=== PATIENT | female | born 1990 | race Caucasian/White ===

== ENCOUNTER 2016-09-05 15:28 | Emergency (ER) | payer OTHER ==
[~2016-09-05] VITALS: Ht 160 cm; Wt 73.0 kg
[~2016-09-05 15:28] MED LIST: BACTDS PO; HYDR-3010 PO; IBUP-1542 PO
[2016-09-05 15:33] VITALS: Ht 160 cm; Wt 73.0 kg
--- NOTE | 2016-09-05 16:42 | ERD ---
ER Documentation Chief Complaint Date/Time DATE: 09/05/16 TIME: 16:34 Chief Complaint PELVIC PAIN X 1 YEAR WORSE X 4 DAYS AGO HPI Otherwise healthy 25-year-old female presents to the emergency department complaining of a one-year history of intermittent right sided pelvic cramping. Patient states she has been seen and evaluated for this symptom previously but was not diagnosed with anything. Patient received an ultrasound in November 2015 which is unremarkable. Patient was instructed to follow-up with REGIONAL OPERATIONS MANAGER specialist and states that she has an appointment scheduled for the of this month. However patient presents to the ER for ongoing discomfort. Patient currently rates her pain as a cramp like 6 out of 10 constant right- sided lower pelvic pain. Patient denies any dysuria, vaginal discharge, abnormal bleeding, rash, fever, flank pain. Patient denies any new sexual partners within the last year. Patient states she has not attempted to treat her pain at home with any medication. ROS All systems reviewed and are negative except as per history of present illness. Medications Home Meds Active Scripts Docusate Sodium* (Colace*) 100 Mg Capsule, 200 MG PO DAILY, #30 CAP Prov:ZELALEM PARADA PA-C 09/05/16 Ibuprofen* (Motrin*) 600 Mg Tab, 600 MG PO Q6, #30 TAB Prov:ZELALEM PARADA PA-C 09/05/16 Ondansetron (Ondansetron Odt) 4 Mg Tab.rapdis, 4 MG PO Q6H Y for NAUSEA AND/OR VOMITING, #10 TAB Prov:ZELALEM PARADA PA-C 09/05/16 Hydroxyzine Hcl* (Hydroxyzine Hcl*) 10 Mg Tablet, 10 MG PO Q6H Y for ANXIETY, # 30 TAB Prov:MARGY FLEMING PA-C 11/27/15 Sulfamethoxazole-Trimethoprim* (Bactrim* DS) 800-160 Mg Tab, 1 TAB PO BID for 7 Days, TAB Prov:MORIS LIN NP 10/29/15 Ibuprofen* (Motrin*) 600 Mg Tab, 600 MG PO Q6H Y for PAIN AND OR ELEVATED TEMP, #30 TAB Prov:MORIS LIN NP 10/29/15 Allergies Allergies: Coded Allergies: No Known Allergy (Unverified , 01/03/13) PMhx/Soc History of Surgery: Yes (CYST REMOVAL) Anesthesia Reaction: No Hx Neurological Disorder: No Hx Respiratory Disorders: No Hx Cardiac Disorders: No Hx Psychiatric Problems: No Hx Miscellaneous Medical Probl: No Hx Alcohol Use: No Hx Substance Use: No Hx Tobacco Use: No Smoking Status: Never smoker Physical Exam Vitals Vital Signs Date Time Temp Pulse Resp B/P Pulse Ox O2 Delivery O2 Flow Rate FiO2 09/05/16 19:45 56 16 109/66 98 Room Air 09/05/16 15:33 98.7 92 18 134/78 99 Physical Exam Const: Well-developed, well-nourished, nontoxic, no acute distress Head: Atraumatic Eyes: Normal Conjunctiva ENT: Normal External Ears, Nose and Mouth. Neck: Full range of motion..~ No meningismus. Resp: Clear to auscultation bilaterally Cardio: Regular rate and rhythm, no murmurs Abd: Mild tenderness to palpation of right sided pelvic area. No masses or evidence of hernia identified. Soft, non tender, non distended. Normal bowel sounds Skin: No petechiae or rashes Back: No midline or flank tenderness Ext: No cyanosis, or edema Neur: Awake and alert Psych: Normal Mood and Affect Result Diagram: 09/05/16 1730 09/05/16 1730 Results 24 hrs Laboratory Tests Test 09/05/16 17:15 09/05/16 17:30 Urine Color LT. YELLOW Urine Clarity CLEAR Urine pH 6.0 Urine Specific [place] 1.025 Urine Ketones NEGATIVE Urine Nitrite NEGATIVE Urine Bilirubin NEGATIVE Urine Urobilinogen 0.2 E.U./dL Urine Leukocyte Esterase NEGATIVE Urine Hemoglobin NEGATIVE Urine Glucose NEGATIVE% Urine Total Protein NEGATIVE White Blood Count 9.610^3/ul Red Blood Count 4.3910^6/ul Hemoglobin 13.4g/dl Hematocrit 39.5% Mean Corpuscular Volume 90.0fl Mean Corpuscular Hemoglobin 30.5pg Mean Corpuscular Hemoglobin Concent 33.9g/dl Red Cell Distribution Width 12.5% Platelet Count 24744^3/UL Mean Platelet Volume 9.7fl Neutrophils % 56.3% Lymphocytes % 34.0% Monocytes % 5.2% Eosinophils % 3.7% Basophils % 0.5% Nucleated Red Blood Cells % 0.0/100WBC Neutrophils # 5.410^3/ul Lymphocytes # 3.310^3/ul Monocytes # 0.510^3/ul Eosinophils # 0.410^3/ul Basophils # 0.110^3/ul Nucleated Red Blood Cells # 0.010^3/ul Sodium Level 139mmol/L Potassium Level 3.6mmol/L Chloride Level 100mmol/L Carbon Dioxide Level 28mmol/L Anion Gap 15 Blood Urea Nitrogen 14mg/dl Creatinine 0.62mg/dl Glucose Level 82mg/dl Calcium Level 9.2mg/dl Total Bilirubin 0.4mg/dl Direct Bilirubin 0.00mg/dl Indirect Bilirubin 0.4mg/dl Aspartate Amino Transf (AST/SGOT) 25IU/L Alanine Aminotransferase (ALT/SGPT) 36IU/L Alkaline Phosphatase 57IU/L Total Protein 8.0g/dl Albumin 4.7g/dl Globulin 3.30g/dl Albumin/Globulin Ratio 1.42 Current Medications Medications (Trade) Dose Ordered Sig/Romario Route PRN Reason Start Time Stop Time Status Last Admin Dose Admin Acetaminophen/ Hydrocodone Bitart ([place] (5/325)) 1 tab ONCE ONCE PO 09/05/16 18:00 09/05/16 18:01 DC 09/05/16 19:15 Ondansetron HCl (Zofran Odt) 4 mg ONCE STAT ODT 09/05/16 17:32 09/05/16 17:34 DC 09/05/16 19:14 Procedures/MDM PROCEDURE: CT abdomen and pelvis without contrast. CLINICAL INDICATION: Abdominal pain. TECHNIQUE: CT scan of the abdomen and pelvis without contrast was performed on a multi-slice CT scanner . Sagittal and coronal reformatted images were obtained from the axial source images. One or more of the following dose reduction techniques were used: - Automated exposure control. - Adjustment of the mA and/or kV according to patient size. - Use of iterative reconstruction technique. DLP 602.3 mGycm. CTDIvol 10.7 mGy COMPARISON: None FINDINGS: The lung bases are clear. There is limited evaluation of the solid viscera from the lack of IV contrast. The kidneys are symmetric bilaterally with no evidence of renal or ureteral calculi. There is no hydronephrosis or perinephric stranding. There is normal density of the liver with no gross focal lesion or biliary ductal dilatation. The gallbladder has multiple layering small gallstones without surrounding visible inflammatory changes on CT. The spleen is unremarkable without mass. The adrenal glands are within normal limits without mass. The pancreas is unremarkable without focal lesion or surrounding inflammatory changes. There is no bowel obstruction or focal bowel inflammation. The appendix is unremarkable. There is a diffusely fecal filled colon. There is no free air or free fluid. There are no enlarged lymph nodes. The aorta is unremarkable and there is no acute osseous abnormality. The uterus and adnexal structures are grossly unremarkable. IMPRESSION: No evidence of renal or ureteral calculi or hydronephrosis. No evidence of bowel obstruction or inflammation. There is no appendicitis. There is a fecal filled colon suggestive for constipation. Cholelithiasis without CT evidence for cholecystitis. RPTAT: AA .Luis Conklin MD, MD Date Time Electronically viewed and signed by .Luis Conklin MD, MD on 09/05/2016 18:30 .J/ CC: ZELALEM PARADA PA-C PROCEDURE: US Pelvis. CLINICAL INDICATION: pelvic pain TECHNIQUE: Multiple sonographic images of the pelvis were obtained utilizing a transabdominal and endovaginal technique. The images were reviewed on a PACS workstation. COMPARISON: None. FINDINGS: The uterus is normal in size with a normal appearance of the myometrium. The uterus measures 7.9 x 5.0 x 5.6 cm. The endometrial stripe is homogeneous in appearance and has the thickness of 8 mm. The ovaries are normal in size and echogenicity. Normal Doppler flow is identified in both ovaries. The right ovary measures 2.9 x 1.8 x 2.2 cm. The left ovary measures 2.9 x 1.4 x 1.6 cm. There are normal sub centimeter follicles in the ovaries. No free fluid is present within the pelvis. RPTAT: AA IMPRESSION: Unremarkable pelvic ultrasound. .Kyree Hansen MD, MD Date Time Electronically viewed and signed by .Kyree Hansen MD, MD on 09/05/2016 17: 27 .S/ CC: TALZELALEM Faby AMNADA 25-year-old well-appearing female with a history of right sided intermittent pelvic cramping 1 year presents for ongoing right-sided pelvic discomfort. Patient was seen and evaluated by [facility] emergency department in November 2015. At that time an ultrasound was performed and unremarkable for any acute abnormalities. Vital signs today were reviewed. Patient is afebrile. Patient is not hypoxic. Patient denies any fever, vomiting, diarrhea, or other abdominal pain. Patient denies any vaginal discharge, abnormal bleeding, or rash. CBC showed no evidence of systemic infection or severe anemia. CMP showed no evidence of electrolyte abnormalities, severe acidosis, alkalosis , renal failure, or liver disease. UA showed no evidence of acute infection or hematuria. Urine test was negative. Ultrasound unremarkable. CT scan revealed evidence of fecal filled colon suggestive of constipation as well as cholelithiasis without evidence of cholecystitis or acute appendicitis. Patient's clinical presentation consistent with chronic right sided pelvic cramping of unknown etiology. At this time low suspicion for ectopic , ovarian torsion, tubo-ovarian abscess, acute appendicitis, small bowel obstruction, renal calculi, cholecystitis or pancreatitis. Patient to follow-up with [facility]PERATIONS MANAGER specialist as previously scheduled for 25 September. Patient given copies of all lab and imaging studies. Until then patient to begin Colace, Motrin, and Tylenol for pain. Patient received a dose of pain medication while in the emergency department and reports improvement of symptoms. Based on patient's history of present illness and physical examination the decision was made to discharge. The patient was re-evaluated after ED treatment and stabilizing measures, and symptoms have improved. There is no evidence of life threatening injuries or illnesses at this time. On re-examination, patient resting in no distress, stable vital signs, reports feeling better and safe for discharge with outpatient follow up with PMD in 1-2 days. Patient given return precautions. Departure Diagnosis: Primary Impression: Chronic pelvic pain in female Additional Impressions: Pelvic cramping Constipation Constipation type: unspecified constipation type Qualified Code: K59.00 - Constipation, unspecified constipation type ZELALEM PARADA PA-C September 05, 2016 16:42
--- NOTE | 2016-09-05 17:28 | RADRPT ---
PROCEDURE: US Pelvis. CLINICAL INDICATION: pelvic pain TECHNIQUE: Multiple sonographic images of the pelvis were obtained utilizing a transabdominal and endovaginal technique. The images were reviewed on a PACS workstation. COMPARISON: None. FINDINGS: The uterus is normal in size with a normal appearance of the myometrium. The uterus measures 7.9 x 5.0 x 5.6 cm. The endometrial stripe is homogeneous in appearance and has the thickness of 8 mm. The ovaries are normal in size and echogenicity. Normal Doppler flow is identified in both ovaries. The right ovary measures 2.9 x 1.8 x 2.2 cm. The left ovary measures 2.9 x 1.4 x 1.6 cm. There are normal sub centimeter follicles in the ovaries. No free fluid is present within the pelvis. RPTAT: AA IMPRESSION: Unremarkable pelvic ultrasound. .Kyree Hansen MD, Date Time Electronically viewed and signed by .Kyree Hansen MD, MD on 09/05/2016 17:27 .S/
[2016-09-05 17:29] LABS: ADD UMIC NO; URINE BILIRUBIN (Dip) NEGATIVE (NEGATIVE); URINE BLOOD (Dip) NEGATIVE (NEGATIVE); URINE COLOR LT. YELLOW (YELLOW); URINE GLUCOSE (Dip) NEGATIVE (NEGATIVE); URINE KETONES (Dip) NEGATIVE (NEGATIVE); URINE LEUKOCYTE ESTERASE (Dip) NEGATIVE (NEGATIVE); URINE NITRITE (Dip) NEGATIVE (NEGATIVE); URINE TOTAL PROTEIN (Dip) NEGATIVE (NEGATIVE); URINE UROBILINOGEN (Dip) 0.2 E.U./dL (0.1-1.0)
[2016-09-05] MEDS ORDERED: ONDANSETRON (ODT) 4 MG TAB ODT STA (17:32)
[2016-09-05 17:36] LABS: ADD SCAN DIFF NO
[2016-09-05 17:38] LABS: BASOPHIL # 0.1 10^3/ul (0.0-0.1); BASOPHILS % 0.5 % (0.0-2.0); EOSINOPHILS # 0.4 10^3/ul (0.0-0.5); EOSINOPHILS % 3.7 % (0.0-7.0); HEMATOCRIT 39.5 % (37.0-47.0); HEMOGLOBIN 13.4 g/dl (12.0-16.0); LYMPHOCYTES # 3.3 10^3/ul (0.8-2.9); MEAN CORPUSCULAR HEMOGLOBIN 30.5 pg (29.0-33.0); MEAN CORPUSCULAR HGB CONC 33.9 g/dl (32.0-37.0); MEAN PLATELET VOLUME 9.7 fl (7.4-10.4); MONOCYTE # 0.5 10^3/ul (0.3-0.9); MONOCYTES % 5.2 % (0.0-11.0); NEUTROPHIL # 5.4 10^3/ul (1.6-7.5); NEUTROPHILS % 56.3 % (39.0-77.0); PLATELET COUNT 308 10^3/UL (140-415); RED BLOOD COUNT 4.39 10^6/ul (4.20-5.40); RED CELL DISTRIBUTION WIDTH 12.5 % (11.5-14.5); WHITE BLOOD COUNT 9.6 10^3/ul (4.8-10.8)
[2016-09-05 17:55] LABS: ALBUMIN 4.7 g/dl (3.3-4.9)
[2016-09-05 17:56] LABS: POTASSIUM 3.6 mmol/L (3.5-5.1)
[2016-09-05 17:58] LABS: ALBUMIN/GLOBULIN RATIO 1.42; BILIRUBIN,INDIRECT 0.4 mg/dl (0-1.1); BILIRUBIN,TOTAL 0.4 mg/dl (0.2-1.3); CREATININE 0.62 mg/dl (0.44-1.00)
[2016-09-05 17:59] LABS: CALCIUM 9.2 mg/dl (8.4-10.2)
[2016-09-05] MEDS ORDERED: HYDROCODONE/APAP (5/325) TAB PO ONE (18:00)
--- NOTE | 2016-09-05 18:31 | RADRPT ---
PROCEDURE: CT abdomen and pelvis without contrast. CLINICAL INDICATION: Abdominal pain. TECHNIQUE: CT scan of the abdomen and pelvis without contrast was performed on a multi-slice CT [facility] . Sagittal and coronal reformatted images were obtained from the axial source images. One or more of the following dose reduction techniques were used: - Automated exposure control. - Adjustment of the mA and/or kV according to patient size. - Use of iterative reconstruction technique. DLP 602.3 mGycm. CTDIvol 10.7 mGy COMPARISON: None FINDINGS: The lung bases are clear. There is limited evaluation of the solid viscera from the lack of IV con trast. The kidneys are symmetric bilaterally with no evidence of renal or ureteral calculi. There is no hy dronephrosis or perinephric stranding. There is normal density of the liver with no gross focal lesion or biliary ductal dilatation. The gallbladder has multiple layering small gallstones without surrounding visible inflammatory changes on CT. The spleen is unremarkable without mass. The adrenal glands are within normal limits without mass. The pancreas is unremarkable without focal lesion or surrounding inflammatory changes. There is no bowel obstruction or focal bowel inflammation. The appendix is unremarkable. There is a diffusely fecal filled colon. There is no free air or free fluid. There are no enlarged lymph node s. The aorta is unremarkable and there is no acute osseous abnormality. The uterus and adnexal structures are grossly unremarkable. IMPRESSION: No evidence of renal or ureteral calculi or hydronephrosis. No evidence of bowel obstruction or inflammation. There is no appendicitis. There is a fecal fille d colon suggestive for constipation. Cholelithiasis without CT evidence for cholecystitis. RPTAT: AA .Luis Conklin MD, MD Date Time Electronically viewed and signed by .Luis Conklin MD, MD on 09/05/2016 18:30 .Jeannine/
[2016-09-05] MEDS ORDERED: DOCU-144 PO (18:48)
[2016-09-05] MEDS ORDERED: ONDA4TAB14 PO (18:48)
[2016-09-05] MEDS ORDERED: IBUP-1542 PO (18:48)
[2016-09-05 19:45] VITALS: BP 109/66; PULSE 56; RESP 16
== END 2016-09-05 19:46 | disposition home or self-care (01) ==
LOC: FTE 15:28
DX: R10.2 Pelvic and perineal pain (principal); K59.00 Constipation, unspecified
CPT/HCPCS: 36415; 74176; 76830; 76856; 80053; 81003; 85025; Z7502; Z7610

== ENCOUNTER 2017-01-23 12:06 | Emergency (ER) | payer OTHER ==
[~2017-01-23] VITALS: Ht 160 cm; Wt 73.0 kg
[~2017-01-23 12:06] MED LIST changes: +DOCU-144 PO; +ONDA4TAB14 PO
[2017-01-23 12:08] VITALS: Ht 160 cm; Wt 73.0 kg
[2017-01-23 13:35] LABS: URINE BLOOD (Dip) POC Trace-intact (NEGATIVE)
[2017-01-23 14:11] LABS: BASOPHIL # 0.1 10^3/ul (0.0-0.1); BASOPHILS % 0.6 % (0.0-2.0); EOSINOPHILS # 0.2 10^3/ul (0.0-0.5); EOSINOPHILS % 1.7 % (0.0-7.0); HEMOGLOBIN 12.9 g/dl (12.0-16.0); LYMPHOCYTES # 3.2 10^3/ul (0.8-2.9); LYMPHOCYTES % 31.1 % (15.0-51.0); MEAN CORPUSCULAR HEMOGLOBIN 30.9 pg (29.0-33.0); MEAN CORPUSCULAR HGB CONC 33.9 g/dl (32.0-37.0); MEAN CORPUSCULAR VOLUME 90.9 fl (82.0-101.0); MEAN PLATELET VOLUME 9.7 fl (7.4-10.4); MONOCYTE # 0.7 10^3/ul (0.3-0.9); MONOCYTES % 6.7 % (0.0-11.0); NEUTROPHIL # 6.1 10^3/ul (1.6-7.5); NEUTROPHILS % 59.6 % (39.0-77.0); PLATELET COUNT 299 10^3/UL (140-415); RED BLOOD COUNT 4.18 10^6/ul (4.20-5.40); RED CELL DISTRIBUTION WIDTH 12.4 % (11.5-14.5); WHITE BLOOD COUNT 10.3 10^3/ul (4.8-10.8)
--- NOTE | 2017-01-23 14:24 | RADRPT ---
PROCEDURE: OBSTETRICAL ULTRASOUND WITH ENDOVAGINAL IMAGES CLINICAL INDICATION: Vaginal bleeding, , pain TECHNIQUE: Multiple sonographic images of the pelvis were obtained utilizing a transabdominal and endovaginal technique. The images were reviewed on a PACS workstation. COMPARISON: None. LMP: 12/21/2016 Gestational age by LMP: 4 weeks, 5 days FINDINGS: The uterus is retroverted and measures 7.1 x 5.4 x 5.8 cm. The endometrial echo complex measures 12 mm in thickness. There is no evidence of an intrauterine . The right ovary measures 3.0 x 2.0 x 2.1 cm. The left ovary measures 2.3 x 1.4 x 1.7 cm. There is no rmal vascular flow in both ovaries. No significant ovarian lesions are seen. There is mild pelvic free fluid. IMPRESSION: Thickening of the endometrium to 12 mm without evidence of an intrauterine . Findings ma y be due to an early intrauterine although an ectopic and early demise can not be entirely excluded. Short-term follow-up ultrasound and serial Beta HCG measurements are leonides mmended for further evaluation. RPTAT: EE Physician Marlon Date Time Electronically viewed and signed by Physician Marlon on 01/23/2017 14:23 /
--- NOTE | 2017-01-23 15:30 | ERD ---
ER Documentation Chief Complaint Date/Time DATE: 01/23/17 TIME: 15:26 Chief Complaint right pelvic pain x 1 week HPI 26-year-old female complaining of suprapubic pelvic pressure 1 week. A1. Last normal menstrual period December 21. No hematuria. No vaginal bleeding. Has not taken medication for symptoms. Denies dysuria. Denies back pain. ROS All systems reviewed and are negative except as per history of present illness. Medications Home Meds Active Scripts Docusate Sodium* (Colace*) 100 Mg Capsule, 200 MG PO DAILY, #30 CAP Prov:ZELALEM PARADA PA-C 09/05/16 Ibuprofen* (Motrin*) 600 Mg Tab, 600 MG PO Q6, #30 TAB Prov:ZELALEM PARADA PA-C 09/05/16 Ondansetron (Ondansetron Odt) 4 Mg Tab.rapdis, 4 MG PO Q6H Y for NAUSEA AND/OR VOMITING, #10 TAB Prov:ZELALEM PARADA PA-C 09/05/16 Hydroxyzine Hcl* (Hydroxyzine Hcl*) 10 Mg Tablet, 10 MG PO Q6H Y for ANXIETY, # 30 TAB Prov:MARGY FLEMING PA-C 11/27/15 Sulfamethoxazole-Trimethoprim* (Bactrim* DS) 800-160 Mg Tab, 1 TAB PO BID for 7 Days, TAB Prov:MORIS LIN SPECIAL DEPUTY SHERIFF 10/29/15 Ibuprofen* (Motrin*) 600 Mg Tab, 600 MG PO Q6H Y for PAIN AND OR ELEVATED TEMP, #30 TAB Prov:MORIS LIN. DIMITRI 10/29/15 Allergies Allergies: Coded Allergies: No Known Allergy (Unverified , 01/03/13) PMhx/Soc History of Surgery: Yes (CYST REMOVAL) Anesthesia Reaction: No Hx Neurological Disorder: No Hx Respiratory Disorders: No Hx Cardiac Disorders: No Hx Psychiatric Problems: No Hx Miscellaneous Medical Probl: No Hx Alcohol Use: No Hx Substance Use: No Hx Tobacco Use: No Physical Exam Vitals Vital Signs Date Time Temp Pulse Resp B/P Pulse Ox O2 Delivery O2 Flow Rate FiO2 01/23/17 12:08 98.8 87 18 132/72 98 Physical Exam GENERAL: The patient is well-appearing, well-nourished, in no acute distress CHEST: Clear to auscultation bilaterally. There are no rales, wheezes or rhonchi. HEART: Regular rate and rhythm. No murmurs, clicks, rubs or gallops. No S3 or S4. ABDOMEN: Active bowel sounds. Mild tenderness to palpation over suprapubic region. No lateralized right or left lower quadrant tenderness. No rebound tenderness. BACK: No midline or flank tenderness. Result Diagram: 01/23/17 1355 Results 24 hrs Laboratory Tests Test 01/23/17 13:42 01/23/17 13:55 Bedside Urine pH (LAB) 6.5 Bedside Urine Protein (LAB) Negative Bedside Urine Glucose (UA) Negative Bedside Urine Ketones (LAB) Negative Bedside Urine Blood Trace-intact Bedside Urine Nitrite (LAB) Negative Bedside Urine Leukocyte Esterase (L Negative White Blood Count 10.310^3/ul Red Blood Count 4.1810^6/ul Hemoglobin 12.9g/dl Hematocrit 38.0% Mean Corpuscular Volume 90.9fl Mean Corpuscular Hemoglobin 30.9pg Mean Corpuscular Hemoglobin Concent 33.9g/dl Red Cell Distribution Width 12.4% Platelet Count 54259^3/UL Mean Platelet Volume 9.7fl Neutrophils % 59.6% Lymphocytes % 31.1% Monocytes % 6.7% Eosinophils % 1.7% Basophils % 0.6% Nucleated Red Blood Cells % 0.0/100WBC Neutrophils # 6.110^3/ul Lymphocytes # 3.210^3/ul Monocytes # 0.710^3/ul Eosinophils # 0.210^3/ul Basophils # 0.110^3/ul Nucleated Red Blood Cells # 0.010^3/ul Beta HCG, Quantitative 270.3mIU/ml Procedures/MDM ER course: Urine was positive. Workup initiated to rule out possible ectopic . DIAGNOSTIC IMAGING REPORT Patient: MIKE MCLAUGHLIN : 1990 Age: 26 Sex: F MR #: [id number] DOS: 01/23/17 1339 Ordering MD: CYN FLEMING PA-C Location: [facility] Room/Bed: PROCEDURE: OBSTETRICAL ULTRASOUND WITH ENDOVAGINAL IMAGES CLINICAL INDICATION: Vaginal bleeding, , pain TECHNIQUE: Multiple sonographic images of the pelvis were obtained utilizing a transabdominal and endovaginal technique. The images were reviewed on a PACS workstation. COMPARISON: None. LMP: 12/21/2016 Gestational age by LMP: 4 weeks, 5 days FINDINGS: The uterus is retroverted and measures 7.1 x 5.4 x 5.8 cm. The endometrial echo complex measures 12 mm in thickness. There is no evidence of an intrauterine . The right ovary measures 3.0 x 2.0 x 2.1 cm. The left ovary measures 2.3 x 1.4 x 1.7 cm. There is normal vascular flow in both ovaries. No significant ovarian lesions are seen. There is mild pelvic free fluid. IMPRESSION: Thickening of the endometrium to 12 mm without evidence of an intrauterine . Findings may be due to an early intrauterine although an ectopic and early demise cannot be entirely excluded. Short- term follow-up ultrasound and serial Beta HCG measurements are recommended for further evaluation. MDM: 26-year-old female complaining of pelvic pressure 1 week. I cannot rule out ectopic at this time is patient is with no IUP identified on ultrasound. Patient beta hCG is 240 well below the discriminatory point. Patient is told to return in 2 days for reevaluation of blood work and imaging at that time. Patient is told if she begins having abdominal pressure and pain to return sooner. Patient does not require RhoGam injection. She is not having vaginal bleeding. No UTI seen on urine dip. Patient was discharged with strict ER precautions and will return in 2 days. I have low suspicion for acute abdominal emergency. Exam is within normal limits. Departure Diagnosis: Primary Impression: Acute pain in female pelvis Condition: Stable Patient Instructions: , New Dx Referrals: [employer]EL[place] [id number] [facility] [address] [place], [place] [phone] OFFICE FAX VALENCIA LGOVER [address] [place] [place] [phone] [place] [place] [address] [place] [place] [id number] [facility] [id number] [facility] [address] [place] [address] [address] [facility], [facility] [address] [facility] [place] [phone] [facility] [address] [place] [address] [address] [facility], [facility] [id number] - [address] RICE, [place] [address], [place] [address] DR WICK, [place] [address] [facility]. [address], [place] [address] DR BONE, [facility] [address] [place], [place] [phone] Additional Instructions: Return in 2 days for reevaluation MARGY FLEMING PA-C Jan 23, 2017 15:30
[2017-01-26] MEDS ORDERED: PREN1COM15 PO (16:51)
== END 2017-01-23 15:53 | disposition home or self-care (01) ==
LOC: FTE 12:06
DX: O26.891 Other specified pregnancy related conditions, first trimester (principal); Z3A.01 Less than 8 weeks gestation of pregnancy
CPT/HCPCS: 76801; 76817; 81003; 84702; 85025; 86900; 86901; Z7502

== ENCOUNTER 2017-01-26 14:58 | Emergency (ER) | END 2017-01-26 17:02 | disposition home or self-care (01) | DX: O26.891 Other specified pregnancy related conditions, first trimester (principal); R10.2 Pelvic and perineal pain; Z3A.01 Less than 8 weeks gestation of pregnancy ==

== ENCOUNTER 2017-02-22 18:52 | Emergency (ER) | payer OTHER ==
[~2017-02-22] VITALS: Ht 160 cm; Wt 72.5 kg
[~2017-02-22 18:52] MED LIST changes: +PREN1COM15 PO
[2017-02-22 18:56] VITALS: Ht 160 cm; Wt 72.5 kg
--- NOTE | 2017-02-22 20:15 | ERD ---
ER Documentation Chief Complaint Chief Complaint pelvic pain x 1 month HPI 26-year-old female presents here to emergency department for complaints of pelvic pain, patient complains of pain, pressure type pain, more on the right side, not better or worse with anything. Patient is 8 weeks , 5 para 3 1. Patient had ultrasound done 1 month ago for the same problem, was told to have intrauterine at 4 weeks. Patient continues to have the pain on and off, pressure type pain at this time, intermittent. ROS All systems reviewed and are negative except as per history of present illness. Medications Home Meds Active Scripts Vit #105/Iron/FA/Dha (Prena1 True Combo Pack) 1 Each Combo..pkg, 1 EACH PO DAILY, #30 Prov:MORIS LIN DELIVERY LEAD 01/26/17 Docusate Sodium* (Colace*) 100 Mg Capsule, 200 MG PO DAILY, #30 CAP Prov:ZELALEM PARADA PA-C 09/05/16 Ibuprofen* (Motrin*) 600 Mg Tab, 600 MG PO Q6, #30 TAB Prov:ZELALEM PARADA PA-C 09/05/16 Ondansetron (Ondansetron Odt) 4 Mg Tab.rapdis, 4 MG PO Q6H Y for NAUSEA AND/OR VOMITING, #10 TAB Prov:ZELALEM PARADA PA-C 09/05/16 Hydroxyzine Hcl* (Hydroxyzine Hcl*) 10 Mg Tablet, 10 MG PO Q6H Y for ANXIETY, # 30 TAB Prov:MARGY FLEMING PA-C 11/27/15 Sulfamethoxazole-Trimethoprim* (Bactrim* DS) 800-160 Mg Tab, 1 TAB PO BID for 7 Days, TAB Prov:MORIS LIN DELIVERY LEAD 10/29/15 Ibuprofen* (Motrin*) 600 Mg Tab, 600 MG PO Q6H Y for PAIN AND OR ELEVATED TEMP, #30 TAB Prov:MORIS LIN DELIVERY LEAD 10/29/15 Allergies Allergies: Coded Allergies: No Known Allergy (Unverified , 01/03/13) PMhx/Soc History of Surgery: Yes (CYST REMOVAL) Anesthesia Reaction: No Hx Neurological Disorder: No Hx Respiratory Disorders: No Hx Cardiac Disorders: No Hx Psychiatric Problems: No Hx Miscellaneous Medical Probl: No Hx Alcohol Use: No Hx Substance Use: No Hx Tobacco Use: No Smoking Status: Never smoker FmHx Family History: No coronary disease, No diabetes, No other Physical Exam Vitals Vital Signs Date Time Temp Pulse Resp B/P Pulse Ox O2 Delivery O2 Flow Rate FiO2 02/22/17 18:56 98.3 75 20 124/67 100 Physical Exam GENERAL: The patient is well developed and appropriate for usual state of health, in no apparent distress. CHEST: Clear to auscultation bilaterally. There are no rales, wheezes or rhonchi. HEART: Regular rate and rhythm. No murmurs, clicks, rubs or gallops. No S3 or S4. ABDOMEN: Soft, nontender and nondistended. Good bowel sounds. No rebound or guarding. No gross peritonitis. No gross organomegaly or masses. No Plata sign or McBurney point tenderness. BACK: No midline or flank tenderness. EXTREMITIES: Equal pulses bilaterally. There is no peripheral clubbing, cyanosis or edema. No focal swelling or erythema. Full range of motion. Grossly neurovascularly intact. NEURO: Alert and oriented. Cranial nerves 2-12 intact. Motor strength in all 4 extremities with 5/5 strength. Sensation grossly intact. Normal speech and gait. SKIN: There is no apparent rash or petechia. The skin is warm and dry. HEMATOLOGIC AND LYMPHATIC: There is no evidence of excessive bruising or lymphedema. No gross cervical, axillary, or inguinal lymphadenopathy. Result Diagram: 02/22/172014 Results 24 hrs Laboratory Tests Test 02/22/17 20:15 White Blood Count 10.810^3/ul Red Blood Count 4.0910^6/ul Hemoglobin 12.7g/dl Hematocrit 37.2% Mean Corpuscular Volume 91.0fl Mean Corpuscular Hemoglobin 31.1pg Mean Corpuscular Hemoglobin Concent 34.1g/dl Red Cell Distribution Width 12.5% Platelet Count 27047^3/UL Mean Platelet Volume 9.6fl Neutrophils % 56.6% Lymphocytes % 33.7% Monocytes % 6.6% Eosinophils % 2.1% Basophils % 0.6% Nucleated Red Blood Cells % 0.0/100WBC Neutrophils # 6.110^3/ul Lymphocytes # 3.610^3/ul Monocytes # 0.710^3/ul Eosinophils # 0.210^3/ul Basophils # 0.110^3/ul Nucleated Red Blood Cells # 0.010^3/ul Urine Color YELLOW Urine Clarity CLEAR Urine pH 6.0 Urine Specific [place] 1.023 Urine Ketones NEGATIVEmg/dL Urine Nitrite NEGATIVEmg/dL Urine Bilirubin NEGATIVEmg/dL Urine Urobilinogen NEGATIVEmg/dL Urine Leukocyte Esterase NEGATIVELeu/ul Urine Hemoglobin NEGATIVEmg/dL Urine Glucose NEGATIVEmg/dL Urine Total Protein NEGATIVEmg/dl Beta HCG, Quantitative 04784.0mIU/ml Procedures/MDM Medical Decision Making: Patient pelvic pain nonspecific at this time, patient is a viable . No urinary tract infection.. Patient does not show any evidence of hypovolemic shock. Patient hemoglobin and hematocrit is stable. There is low suspicion for ectopic . PATI results show _viable at 8 weeks. BetaHCG Quantitative is appropriate for .The patient is Rh+, does not need RhoGAM this time. There is no signs of symptoms of dehydration. There is low suspicion for sepsis. Patient appears well and is hemodynamically stable. No suspicion for appendicitis, other abdominal emergencies, nontender on abdominal palpation, no leukocytosis, no fever, no bandemia. Disposition: Home. Condition: Stable Prescription: Tylenol Instructions: Patient is advised to do bed rest, avoid heavy lifting, and avoid having sex until cleared by OB doctor. Patient is advised to follow up with OB doctor or here at the ER in 48 hours for reevaluation of symptoms, repeat beta HCG quantitative and ultrasound. Patient is advised that is symptoms are worst, severe bleeding, dizziness, severe abdominal pain, fever, worst signs and symptoms to return to the emergency department immediately. Disclaimer: Inadvertent spelling and grammatical errors are likely due to EHR/ dictation software use and do not reflect on the overall quality of patient care. Also, please note that the electronic time recorded on this note does not necessarily reflect the actual time of the patient encounter. Departure Diagnosis: Primary Impression: Pelvic pain Additional Impression: Intrauterine Condition: Stable Patient Instructions: Pelvic Pain, Unknown Cause Additional Instructions: Patient is advised to do bed rest, avoid heavy lifting, and avoid having sex until cleared by OB doctor. Patient is advised to follow up with OB doctor or here at the ER in 48 hours for reevaluation of symptoms, repeat beta HCG quantitative and ultrasound. Patient is advised that is symptoms are worst, severe bleeding, dizziness, severe abdominal pain, fever, worst signs and symptoms to return to the emergency department immediately. RICHARD REDDY NP Feb 22, 2017 20:15
[2017-02-22 20:27] LABS: BASOPHIL # 0.1 10^3/ul (0.0-0.1); BASOPHILS % 0.6 % (0.0-2.0); EOSINOPHILS # 0.2 10^3/ul (0.0-0.5); EOSINOPHILS % 2.1 % (0.0-7.0); HEMATOCRIT 37.2 % (37.0-47.0); HEMOGLOBIN 12.7 g/dl (12.0-16.0); LYMPHOCYTES # 3.6 10^3/ul (0.8-2.9); LYMPHOCYTES % 33.7 % (15.0-51.0); MEAN CORPUSCULAR HEMOGLOBIN 31.1 pg (29.0-33.0); MEAN CORPUSCULAR HGB CONC 34.1 g/dl (32.0-37.0); MEAN PLATELET VOLUME 9.6 fl (7.4-10.4); MONOCYTE # 0.7 10^3/ul (0.3-0.9); MONOCYTES % 6.6 % (0.0-11.0); NEUTROPHIL # 6.1 10^3/ul (1.6-7.5); NEUTROPHILS % 56.6 % (39.0-77.0); PLATELET COUNT 285 10^3/UL (140-415); RED BLOOD COUNT 4.09 10^6/ul (4.20-5.40); RED CELL DISTRIBUTION WIDTH 12.5 % (11.5-14.5); WHITE BLOOD COUNT 10.8 10^3/ul (4.8-10.8)
[2017-02-22 20:28] LABS: ADD UMIC NO; UR ASCORBIC ACID 40 mg/dL (NEGATIVE); UR BILIRUBIN (Dip) NEGATIVE (NEGATIVE); UR BLOOD (Dip) NEGATIVE (NEGATIVE); UR CLARITY CLEAR (CLEAR); UR COLOR YELLOW (YELLOW); UR GLUCOSE (Dip) NEGATIVE (NEGATIVE); UR KETONES (Dip) NEGATIVE (NEGATIVE); UR LEUKOCYTE ESTERASE (Dip) NEGATIVE Leu/ul (NEGATIVE); UR NITRITE (Dip) NEGATIVE (NEGATIVE); UR SPECIFIC GRAVITY (Dip) 1.023 (1.003-1.030); UR TOTAL PROTEIN (Dip) NEGATIVE (NEGATIVE); UR UROBILINOGEN (Dip) NEGATIVE (NEGATIVE)
--- NOTE | 2017-02-22 20:58 | RADRPT ---
PROCEDURE: US OB. CLINICAL INDICATION: Pelvic pain TECHNIQUE: Transabdominal views of the pelvis are available for review. COMPARISON: US PELVIS 01/26/2017 FINDINGS: There is a single intrauterine gestation with the crown-rump length measuring 1.8 cm and the gestati onal sac measuring 2.6 cm, corresponding to a gestational age of 8 weeks and 0 days. The heart rate is noted at 176 bpm. The ovaries are normal in size and echogenicity. Normal Doppler flow is identified in both ovaries. The right ovary measures 3.1 x 2.5 x 2.1 cm. The left ovary measures 2.6 x 2.3 cm. There is no free fluid. RPTAT: AA IMPRESSION: Single live intrauterine with an estimated gestational age of 8 weeks and 0 days, based on ultrasound measurements. RISHABH based on ultrasound measurements is 10/04/2017. .Kyree Hansen MD, MD Date Time Electronically viewed and signed by .Kyree Hansen MD, on 02/22/2017 20:58 .S/
[2017-02-22] MEDS ORDERED: ACET500C5 PO (21:47)
[2017-02-22] MEDS ORDERED: ACETAMINOPHEN 500 MG TAB PO ONE (21:49)
== END 2017-02-22 21:47 | disposition home or self-care (01) ==
LOC: FTE 18:52
DX: O26.891 Other specified pregnancy related conditions, first trimester (principal); R10.2 Pelvic and perineal pain; Z3A.08 8 weeks gestation of pregnancy
CPT/HCPCS: 36415; 76801; 81003; 84702; 85025; 86900; 86901; Z7502

== ENCOUNTER 2017-05-07 20:09 | Emergency (ER) | END 2017-05-08 00:14 | disposition home or self-care (01) ==